=== PATIENT | male | born 1985 | race Hispanic/Latino ===

== ENCOUNTER 2018-01-05 10:31 | Emergency (ER) | payer BC ==
[2018-01-05 10:38] VITALS: TEMP 97; BMI 29.9
[2018-01-05 11:33] LABS: BASO # 0.1 K/uL (0.0-0.2); BASO % 0.7 % (0.0-2.0); EOS # 0.2 K/uL (0.0-0.7); EOS % 2.1 % (0.0-4.0); HEMOGLOBIN 14.9 g/dL (12.0-18.0); LYMPH # 1.5 K/uL (1.0-4.3); LYMPH % 20.1 % (20.0-40.0); MEAN CELL VOLUME 95.1 fl (80.0-94.0); MEAN CORPUSCULAR HEMOGLOBIN 33.1 pg (27.0-31.0); MEAN CORPUSCULAR HGB CONC 34.8 g/dL (33.0-37.0); MEAN PLATELET VOLUME 6.7 fl (7.2-11.7); MONO # 0.9 K/uL (0.0-0.8); MONO % 12.5 % (0.0-10.0); NEUT # 4.8 K/uL (1.8-7.0); NEUT % 64.6 % (50.0-75.0); NRBC % 0.1 % (0.0-0.0); RBC 4.5 Mil/uL (4.40-5.90); RED CELL DISTRIBUTION WIDTH 13.5 % (11.5-14.5); WHITE BLOOD COUNT 7.4 K/uL (4.8-10.8)
[2018-01-05 11:37] LABS: ALB/GLOB RATIO 1.3 (1.0-2.1); ALBUMIN 4.3 g/dL (3.5-5.0); ALT/SGPT 87 U/L (21-72); AST/SGOT 50 U/L (17-59); BLOOD UREA NITROGEN 18 mg/dl (9-20); CALCIUM 9.2 mg/dL (8.4-10.2); GFR AFRICAN-AMERICAN > 60; GFR NON-AFRICAN AMERICAN > 60
[2018-01-05 12:05] LABS: INR 0.9 (0.9-1.2); PARTIAL THROMBOPLASTIN TIME 33.9 Seconds (25.6-37.1); PROTHROMBIN TIME 9.9 Seconds (9.8-13.1)
--- NOTE | 2018-01-05 12:29 | US ---
PROCEDURE: Left Upper Extremity Venous Doppler HISTORY: ecchymosis, r/o dvt COMPARISON: None available. TECHNIQUE: Left extremity deep veins, including the lower internal jugular, subclavian, axillary and brachial veins, were evaluated flow, compressibility and respiratory phasicity. FINDINGS: Normal flow, compressibility and respiratory phasicity was observed in the left upper extremity deep veins. IMPRESSION: No sonographic evidence of deep venous thrombosis left upper extremity.
--- NOTE | 2018-01-05 12:47 | RAD ---
PROCEDURE: Radiographs of the Left Forearm HISTORY: ecchymosis COMPARISON: None available. TECHNIQUE: Frontal and lateral views obtained. FINDINGS: BONES: No fracture or destructive lesion. JOINT SPACES: Unremarkable. OTHER FINDINGS: Reticular changes in the dorsal forearm soft tissue extending to the elbow level reflect cellulitis without retained radiodense foreign body or emphysema soft tissue change. Clinically correlate further. IMPRESSION: No fracture or dislocation of left forearm. Cellulitis changes seen the subcutaneous soft tissues dorsally extending proximal to overlie the elbow as well.
--- NOTE | 2018-01-05 12:48 | RAD ---
PROCEDURE: Radiographs of the left humerus. HISTORY: ecchymosis COMPARISON: None. FINDINGS: BONES: No acute fracture or destructive bony lesion identified. SOFT TISSUES: Subcutaneous soft tissue edema overlies the olecranon process incidentally. OTHER FINDINGS: None. IMPRESSION: Unremarkable radiographs of left humerus.
--- NOTE | 2018-01-05 13:03 | ED PDOC ---
Upper Extremity Pain/Injury Time Seen by Provider: 01/05/18 10:44 Chief Complaint (Nursing): Upper Extremity Problem/Injury History Per: Patient History/Exam Limitations: no limitations Onset/Duration Of Symptoms: Days (5 days) Current Symptoms Are (Timing): Still Present Severity: None Exacerbating Factor(s): Nothing Additional Complaint(s): Ray Delacruz is a 32 year old male, who presents to the emergency department complaining of atraumatic painless bruising on left arm that radiates to forearm since 4 days ago. Patient reports it initially began with a small lump, which then developed into bruising. He notes going to [place] 5 days ago and denies trauma, or injury. States that he did not go skiing or snowboarding. All that he recalls was lifting his 70lb suitcase. Patient denies headache, chills, numbness, decreased range of motion, chest pain, shortness of breath, or leg pain or swelling. Denies any h/o easy bleeding/bruising, or any h /o bleeding disorders, AVMs. Past Medical History Reviewed: Historical Data, Nursing Documentation, Vital Signs Vital Signs: Last Vital Signs Temp 97 F L 01/05/18 10:37 Pulse 133 H 01/05/18 10:37 Resp BP 145/82 01/05/18 10:37 Pulse Ox 99 01/05/18 10:37 - Medical History PMH: Asthma - Family History Family History: States: No Known Family Hx - Allergies Allergies/Adverse Reactions: Allergies Allergy/AdvReac Type Severity Reaction Status Date / Time azithromycin [From Zithromax] AdvReac RASH Verified 01/05/18 10:55 Penicillins AdvReac RASH Verified 01/05/18 10:55 Review of Systems Constitutional: Negative for: Fever, Chills Cardiovascular: Negative for: Chest Pain Respiratory: Negative for: Shortness of Breath Gastrointestinal: Negative for: Abdominal Pain Genitourinary Male: Negative for: Dysuria Skin: Positive for: Bruising (medial left arm bruising to forearm ) Neurological: Negative for: Weakness, Numbness Physical Exam - Reviewed Nursing Documentation Reviewed: Yes Vital Signs Reviewed: Yes - Physical Exam Comments: GENERAL APPEARANCE: Patient is awake, alert, oriented x 3, in no acute distress. SKIN: Warm, dry; (-) cyanosis. EYES: (-) conjunctival pallor. ENMT: Mucous membranes moist. NECK: (-) tenderness, (-) stiffness, (-) lymphadenopathy, (-) JVD. CHEST AND RESPIRATORY: (-) rash, (-) chest wall tenderness. Lungs: (-) rales , (-) rhonchi, (-) wheezes, (-) rub; breath sounds equal bilaterally. HEART AND CARDIOVASCULAR: (-) irregularity; (-) murmur, (-) gallop, (-) rub. ABDOMEN AND GI: Soft; (-) distention, (-) tenderness, (-) palpable pulsatile mass. EXTREMITIES: (+) extensive ecchymosis from the medial L arm extending to the L distal forearm with (+) edema to he olecranon process of the L elbow extending to the medial left forearm, (-) calf tenderness/edema, (+) FROM, (-) deformity; (+) distal pulses, (+) sensation intact. NEURO AND PSYCH: Mental status as above. Cranial nerves grossly intact; strength symmetric. - Laboratory Results Result Diagrams: 01/05/18 11:20 01/05/18 11:20 - ECG O2 Sat by Pulse Oximetry: 99 (room air) Pulse Ox Interpretation: Normal Medical Decision Making Medical Decision Making: Plan: -- NPO Diet -- IV Saline -- Labs -- XR L humerus / forearm -- US doppler L UE -- Reassess and disposition XR L humerus / forearm : no fracture, no dislocation, as read by PA. US L UE: (-) DVT. Labs reviewed and are wnl. On re-evaluation, patient denies any pain, and has no other complaints at this time. Patient seen and evaluated by ER MD and agrees with disposition and entire treatment plan. Diagnosis of hematoma, contusion d/w the patient. Based on history, exam and diagnostic results, plan will be for outpatient follow up. Patient instructed to follow-up with referral provided in 1-2 days without fail. Advised to elevate and apply ice. Return to the emergency room at any time for any new or worsening symptoms. Patient states he fully agrees with and understands discharge instructions. States that he agrees with the plan and disposition. Verbalized and repeated discharge instructions and plan. I have given the patient opportunity to ask any additional questions. Scribe Attestation: Documented by Shelli Severino Attestation: All medical record entries made by the Mere were at my direction and personally dictated by me. I have reviewed the chart and agree that the record accurately reflects my personal performance of the history, physical exam, medical decision making, and the department course for this patient. I have also personally directed, reviewed, and agree with the discharge instructions and disposition. Disposition - Clinical Impression Clinical Impression: Arm bruise, Hematoma - Patient ED Disposition Is Patient to be Admitted: No Counseled Patient/Family Regarding: Studies Performed, Diagnosis, Need For Followup - Disposition Referrals: Jeffrey Duran MD [Staff Provider] - Disposition: Routine/Home Disposition Time: 12:30 Condition: STABLE Additional Instructions: Thank you for letting us take care of you today. You were treated for arm bruising. The emergency medical care you received today was directed at your acute symptoms. Return to the Emergency Department if your symptoms worsen, do not improve, or if you have any other problems. Please contact your doctor in 2 days for re-evaluation and follow up / or call one of the physicians/clinics you have been referred to that are listed on the Patient Visit Information form that is included in your discharge packet. Bring any paperwork you were given at discharge with you along with any medications you are taking to your follow up visit. Our treatment cannot replace ongoing medical care by a primary care provider (PCP) outside of the emergency department. Thank you for allowing the [facility] team to be part of your care today. If you had an X-Ray : A Radiologist will review the ED reading if any change in treatment is needed we will contact you. Instructions: Contusion (DC) Forms: [facility] ED School/Work Excuse, [facility] ([place]) - PA / VICE PRESIDENT OF TALENT MANAGEMENT / Resident Statement MD/DO has reviewed & agrees with the documentation as recorded.
[2018-01-05 13:11] VITALS: BP 132/76; PULSE 96; RESP 18
[2018-01-05 13:16] VITALS: O2SAT 99
== END 2018-01-05 13:12 | disposition home or self-care (01) ==
LOC: H.ER 10:31
DX: M79.81 Nontraumatic hematoma of soft tissue (principal); Z88.0 Allergy status to penicillin; J45.909 Unspecified asthma, uncomplicated

== ENCOUNTER 2018-02-26 05:29 | Emergency (ER) | payer BC ==
[2018-02-26 05:30] VITALS: BMI 29.9
[2018-02-26 05:52] VITALS: TEMP 98.5; O2SAT 97
[2018-02-26] MEDS ORDERED: diaZEpam 10 mg/2 ml Inj IM ONE (06:13)
--- NOTE | 2018-02-26 06:41 | ED PDOC ---
HPI: Back Time Seen by Provider: 02/26/18 06:08 Chief Complaint (Nursing): Back Pain Chief Complaint (Provider): Back Pain History Per: Patient History/Exam Limitations: no limitations Onset/Duration Of Symptoms: Days (1) Current Symptoms Are (Timing): Still Present Additional Complaint(s): 32 yo male with a history of asthma, presents to the Ed complaining of low back pain, onset of 1 day ago. Patient reports that as he was getting of the couch, he suddenly developed low back pain with stiffness that radiates down to his left buttock and right lower extremity. He denies any fall or trauma. Of note, patient states that he's had back issues in the past, but today was more severe. Past Medical History Reviewed: Historical Data, Nursing Documentation, Vital Signs Vital Signs: Last Vital Signs Temp 98.5 F 02/26/18 05:49 Pulse 97 H 02/26/18 05:49 Resp BP 134/81 02/26/18 05:49 Pulse Ox 97 02/26/18 05:49 - Medical History PMH: Asthma - Surgical History Other surgeries: I and D of pilonydal cyst - Family History Family History: States: Unknown Family Hx - Social History Current smoker - smoking cessation education provided: Yes (light) Alcohol: Social Drugs: Denies - Home Medications Home Medications: Ambulatory Orders Medication Instructions Recorded Cyclobenzaprine [Cyclobenzaprine 10 mg PO DAILY PRN #5 tab 02/26/18 HCl] - Allergies Allergies/Adverse Reactions: Allergies Allergy/AdvReac Type Severity Reaction Status Date / Time azithromycin [From Zithromax] AdvReac RASH Verified 01/05/18 10:55 Penicillins AdvReac RASH Verified 01/05/18 10:55 Review of Systems ROS Statement: Except As Marked, All Systems Reviewed And Found Negative Constitutional: Negative for: Fever Musculoskeletal: Positive for: Back Pain (low back pain) Physical Exam - Reviewed Nursing Documentation Reviewed: Yes Vital Signs Reviewed: Yes - Physical Exam Appears: Positive for: Well, Uncomfortable Head Exam: Positive for: ATRAUMATIC, NORMAL INSPECTION, NORMOCEPHALIC Skin: Positive for: Normal Color, Warm, DRY Eye Exam: Positive for: EOMI, Normal appearance, PERRL ENT: Positive for: Normal ENT Inspection Neck: Positive for: Normal, Painless ROM Cardiovascular/Chest: Positive for: Regular Rate, Rhythm. Negative for: Murmur Respiratory: Positive for: Normal Breath Sounds. Negative for: Respiratory Distress Gastrointestinal/Abdominal: Positive for: Normal Exam, Soft. Negative for: Tenderness Back: Positive for: Normal Inspection, Muscle Spasm, Other (straight leg tenderness at 30 degrees bilaterally) Extremity: Positive for: Normal ROM. Negative for: Pedal Edema, Deformity Neurologic/Psych: Positive for: Alert, Oriented. Negative for: Motor/Sensory Deficits - ECG O2 Sat by Pulse Oximetry: 97 (RA) Pulse Ox Interpretation: Normal Medical Decision Making Medical Decision Making: Time: --06:13 Impression: --32 yo male with acute low back pain Plan: --Lumbar spine X-ray --Cyclobenzaprine 10mg PO --Valium 10mg IM --Toradol 30mg IM Reassess --07:00 Patient signed out by the provider to Dr. Hernandez pending x-ray, workup, and reevaluation. Scribe Attestation: Documented by Gustavo Childress acting as a scribe for Deven Bess MD. Provider Attestation: All medical record entries made by the Scribe were at my direction and personally dictated by me. I have reviewed the chart and agree that the record accurately reflects my personal performance of the history, physical exam, medical decision making, and the department course for this patient. I have also personally directed, reviewed, and agree with the discharge instructions and disposition. Disposition - Clinical Impression Clinical Impression: Back pain - Disposition Referrals: [facility] [Outside] [facility] [Outside] Disposition: Transfer of Care Disposition Time: 07:00 Condition: IMPROVED Additional Instructions: follow up with your primary doctor in 1-2 days return to the ED with any worsening or concerning symptoms Prescriptions: Cyclobenzaprine [Cyclobenzaprine HCl] 10 mg PO DAILY PRN #5 tab PRN Reason: Pain, Moderate (4-7) Instructions: Upper Back Pain (DC) Forms: [employer] (Turkish)
--- NOTE | 2018-02-26 07:28 | ED PDOC ---
- ECG O2 Sat by Pulse Oximetry: 97 (RA) Pulse Ox Interpretation: Normal Medical Decision Making Medical Decision Making: Time: 699 Patient was signed out by Dr. Deven Bess to myself. Pending reevaluation. Time: 1809 Patient reports improved symptoms upon evaluation. xrays appear to be negative for acute fracture or dislocation --------- Scribe Attestation: Documented by Candi Strange, acting as a scribe for Mary Goldsmith MD. Provider Scribe Attestation: All medical record entries made by the Scribe were at my direction and personally dictated by me. I have reviewed the chart and agree that the record accurately reflects my personal performance of the history, physical exam, medical decision making, and the department course for this patient. I have also personally directed, reviewed, and agree with the discharge instructions and disposition. Disposition - Clinical Impression Clinical Impression: Back pain - POA Present On Arrival: None - Disposition Referrals: [facility] [Outside] [facility] [Outside] Disposition: Routine/Home Disposition Time: 09:00 Condition: IMPROVED Additional Instructions: follow up with your primary doctor in 1-2 days return to the ED with any worsening or concerning symptoms Prescriptions: Cyclobenzaprine [Cyclobenzaprine HCl] 10 mg PO DAILY PRN #5 tab PRN Reason: Pain, Moderate (4-7) Instructions: Upper Back Pain (DC) Forms: [employer] (Citizen Of [place])
[2018-02-26 09:42] VITALS: BP 119/83; PULSE 90; RESP 20
--- NOTE | 2018-02-26 11:54 | RAD ---
PROCEDURE: Radiographs of the Lumbar Spine. HISTORY: low back pain COMPARISON: No prior. FINDINGS: BONES: Normal alignment. No listhesis. No fracture. DISC SPACES: Unremarkable. OTHER FINDINGS: None. IMPRESSION: Unremarkable radiographs of the lumbar spine.
== END 2018-02-26 09:43 | disposition home or self-care (01) ==
LOC: H.ER 05:29
DX: M54.9 Dorsalgia, unspecified (principal); J45.909 Unspecified asthma, uncomplicated; Z88.0 Allergy status to penicillin
CPT/HCPCS: 72114; 96372; 99283; J1885